=== PATIENT | male | born 1955 | race Caucasian/White ===

== ENCOUNTER → 2019-03-05 | Outpatient (CLI) | payer OTHER, MEDICARE ==
[~2019-03-05] MED LIST: ALLEGRA ALLERG180 MG PO; AMLODIPINE BESYL5 MG PO; ANDROGEL5 GM TD; ASPIRIN EC81 M1 PO; FISHOIL; LUTEIN20 MG PO; MOBIC; MOBIC15 MG PO; NEXIUM40 MG PO; NORCO 5-325 TA1 EACH PO; ONE DAILY HEAL1 EACH PO; PEXEVA30 MG PO; QUINAPRIL 20 MG20 MG PO; VITAMIN D-32000 UNIT PO
--- NOTE | 2019-03-07 07:32 | SLE ---
[facility] [place] [address] POLYSOMNOGRAPHY STUDY Name: TARUNVIRI Cole Room #: REG [facility]#: [id number] Admission: 03/05/19 ������������������ Attend Phys: Jg Ray MD Discharge: ������������������ Date of : 51 Report #: [id number] THIS REPORT FOR: //name// CC: Jg Childs MD DATE OF SERVICE: 03/05/2019 SLEEP STUDY DATE OF STUDY: 03/05/2019. ATTENDING PHYSICIAN: Han Childs M.D. The patient is 63 years old who weighs 265 pounds with a BMI of 37. The patient's Birchwood score was 4. The patient underwent diagnostic sleep study performed at [facility]. During the night study, the patient spent 444 minutes in bed, but slept for only 210 minutes with a low sleep efficiency of 47%. Sleep latency was prolonged at 58 minutes with a REM latency of 344 minutes, which was prolonged as well. Overall, sleep architecture showed increased stage 1 and stage 2 sleep, absent N3 sleep and reduced REM sleep, which was only 8.8% of the total sleep time. During the night study, the patient had no apneas. There were 23 hypopneas. The patient's apnea-hypopnea index was 6.6 per hour with a supine index of 7.6 per hour. No significant REM-related respiratory events were seen. EKG monitoring revealed normal sinus rhythm. Average heart rate was 61 beats per minute. No sustained arrhythmias observed. PLMS were seen at an index of 146 per hour and 11 per hour caused EEG arousals. Nocturnal oximetry study revealed an average oxygen saturation of 94% with a lowest of 88%. Only 0.9 minutes were spent in oxygen saturation less than 89%. Due to low AHI, the patient did not meet the split-night criteria for CPAP initiation. IMPRESSION: 1. Mild sleep apnea-hypopnea syndrome with an apnea-hypopnea index of 6.6 per hour. 2. Significantly reduced sleep efficiency of 47%, resulting from sleep onset and sleep maintenance insomnia. 3. Severe periodic limb movements of sleep at an index of 146 per hour and 11 [facility] [address] [place] [address] POLYSOMNOGRAPHY STUDY Name: TIANAVIRI CHEW Room #: REG [facility].#: [id number] Admission: 03/05/19 ������������������ Attend Phys: Jg Ray MD Discharge: ������������������ Date of : 51 Report #: [id number] per hour caused EEG arousals. 4. No clinically significant nocturnal hypoxia. RECOMMENDATIONS: 1. The patient has mild sleep apnea. The patient's Birchwood score is only 4. I would recommend treating the patient's sleep apnea initially with weight loss. 2. If the patient remains clinically symptomatic despite weight loss or has comorbid conditions, then the patient's sleep apnea can be treated either with CPAP versus a trial of oral appliance as recommended by the dentist. 3. The patient's insomnia can also contribute to daytime sleepiness. It should be further evaluated and treated according to the etiology to improve the patient's sleep efficiency. 4. Avoid [employer] depressants. 5. Cautioned regarding driving until the patient's symptoms of sleep apnea resolve with the above recommendations. 6. Patient has severe PLMS. It can be treated with dopaminergic agonist agents. Patient should also be evaluated for symptoms of restless legs during the day. ��������������������������������������������� <ELECTRONICALLY SIGNED> ���������������������������������������� By: Jg Ray MD ��������������������������������������������� 03/07/19 0732 [id number] Jg Ray MD /nt
== END ==
LOC: SLEEPLAB 15:50
DX: G47.30 Sleep apnea, unspecified (principal); G47.34 Idiopathic sleep related nonobstructive alveolar hypoventilation

== ENCOUNTER → 2019-06-26 | Outpatient (CLI) | payer OTHER, MEDICARE | LOC: RAD 15:38 | DX: R06.00 Dyspnea, unspecified (principal); G47.33 Obstructive sleep apnea (adult) (pediatric); Z88.0 Allergy status to penicillin; Z88.2 Allergy status to sulfonamides ==

== ENCOUNTER → 2020-02-19 | Outpatient (CLI) | payer OTHER, MEDICARE | LOC: SJCVC 12:51 | PROVIDERS: ATTEND Internal Medicine | DX: R94.31 Abnormal electrocardiogram [ECG] [EKG] (principal); R00.2 Palpitations; I48.0 Paroxysmal atrial fibrillation; I10 Essential (primary) hypertension; E78.5 Hyperlipidemia, unspecified; E78.00 Pure hypercholesterolemia, unspecified; Z82.49 Family history of ischemic heart disease and other diseases of the circulatory system; Z79.899 Other long term (current) drug therapy ==

== ENCOUNTER → 2020-02-26 | Outpatient (CLI) | payer OTHER, MEDICARE ==
--- NOTE | 2020-02-27 13:10 | LINQ ---
[facility] [place] [address] LINQ PROCEDURE REPORT Name: TARUNVIRI [id number] Admission: 02/26/20 Attend Phys: Billy Arguelles Discharge: Date of : 51 Report #: [id number] THIS REPORT FOR: cc: Wagner Acosta MD, Rene P. MD Lammoglia, Francisco J. MD ~ THIS REPORT FOR: //name// APPROVED REPORT Study performed: 02/26/2020 16:00:50 Patient Status: Out-Patient Room #: Event Personnel: Billy Arguelles MD Exam: Reveal LINQ insertion The patient is a 64 year-old male with a history of palpitations and atrial fibrillation. Implanted Devices: Medtronic: Reveal LINQ; LNQ11; SN: [id number] Procedure The patient underwent informed consent. We discussed the details of the procedure including the risks, which include, but not limited to bleeding, infection, vascular damage, cardiac perforation, and pneumothorax. The patient's left chest was prepped and draped in usual sterile manner. 1% lidocaine a small incision wheal was raised and an 11 blade was used to make a small incision. Using both sharp and blunt dissection a tract and pocket with developed. With the manufacturing close deployment tool the device was then deployed without complications. Subcutaneous tissue was closed with 2 simple interrupted 2 oh nonabsorbable suture and the skin was closed with a running 3-0 Vicryl subcuticular. Dermabond was utilized on the skin Steri-Strips 4 x 4 OpSite were used. Patient tolerated procedure well there were no complications Complications The patient tolerated the procedure well and there were no complications associated with the procedure. Findings [address] [place] [address] [email or web address] PROCEDURE REPORT Name: VIRI MCNEIL Room #: REG [facility]#: [id number] Admission: 02/26/20 Attend Phys: Billy Garcia Discharge: Date of : 51 Report #: [id number] Estimated Blood Loss: 0 Conclusion 1. Successful insertion of a Medtronic implantable loop recorder Recommendations 1. Routine post insertion protocol <ELECTRONICALLY SIGNED> By: Billy Arguelles MD 02/27/20 1308 1308 1308 Billy Arguelles MD /INF
== END | disposition home or self-care (01) ==
LOC: CATH 09:43
PROVIDERS: ATTEND Internal Medicine
DX: R00.2 Palpitations (principal); I48.91 Unspecified atrial fibrillation; Z98.890 Other specified postprocedural states; Z79.899 Other long term (current) drug therapy; Z79.01 Long term (current) use of anticoagulants; Z88.2 Allergy status to sulfonamides; Z88.0 Allergy status to penicillin

== ENCOUNTER → 2020-10-17 | Outpatient (CLI) | payer OTHER, MEDICARE | LOC: SJCVCIMAG 09:21 | PROVIDERS: ATTEND Internal Medicine | DX: I08.8 Other rheumatic multiple valve diseases (principal); I48.0 Paroxysmal atrial fibrillation; I11.9 Hypertensive heart disease without heart failure; Z95.2 Presence of prosthetic heart valve; Z79.899 Other long term (current) drug therapy ==